=== PATIENT | female | born 1970 | race American Indian/Alaskan Native ===

== ENCOUNTER 2016-12-25 20:53 | Emergency (ER) | payer OTHER ==
[2016-12-25] MEDS ORDERED: NACL 0.9% 1000 ML 1,000 ML IV ONE (21:24)
[2016-12-25] MEDS ORDERED: SUBLIMAZE IV ONE ×2 (21:24→22:31)
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
[2016-12-25 21:48] LABS: Basophils % (Auto) 1.1 % (0.0-1.8); Eosinophils % (Auto) 0.2 % (0.0-4.3); Hematocrit 43.3 % (30.3-42.9); Hemoglobin 14.4 gm/dl (10.1-14.3); Mean Corpuscular HGB Conc 33 % (30-34); Mean Corpuscular Hemoglobin 31 pg (28-32); Mean Corpuscular Volume 94 fl (79-97); Platelet Count 256 K/mm3 (140-440); Red Blood Count 4.59 M/mm3 (3.65-5.03); Red Cell Distribution Width 13.5 % (13.2-15.2); White Blood Count 12.3 K/mm3 (4.5-11.0)
[2016-12-25 22:00] LABS: INR 1.04 (0.87-1.13)
[2016-12-25 22:14] LABS: Alanine Aminotransferase 9 units/L (7-56); Albumin 4.1 g/dL (3.9-5); Albumin/Globulin Ratio 1.4 %; Alkaline Phosphatase 76 units/L (35-129); Anion Gap 17 mmol/L; Bilirubin,Total 0.8 mg/dL (0.1-1.2); Blood Urea Nitrogen 12 mg/dL (7-17); Carbon Dioxide 23 mmol/L (22-30); Chloride 97.4 mmol/L (98-107); Creatine Kinase 83 units/L (30-135); Glucose 292 mg/dL (65-100); Sodium 133 mmol/L (137-145)
[2016-12-25] MEDS ORDERED: NACL ONE (22:18)
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
[2016-12-25] MEDS ORDERED: TORADOL IV ONE (23:51)
[2016-12-25 23:59] VITALS: BP 103/67
--- NOTE | 2016-12-26 09:56 | XRay Report ---
AP CHEST: HISTORY: chest pain AP view of the chest demonstrates a normal mediastinal and cardiac contour with clear lungs and normal bony and soft tissue structures. IMPRESSION: Unremarkable AP chest.
== END 2016-12-26 00:13 | disposition home or self-care (01) ==
LOC: ED 20:53
DX: M54.2 Cervicalgia (principal); E11.9 Type 2 diabetes mellitus without complications; F17.200 Nicotine dependence, unspecified, uncomplicated; F12.90 Cannabis use, unspecified, uncomplicated; Z88.5 Allergy status to narcotic agent; V49.9XXA Car occupant (driver) (passenger) injured in unspecified traffic accident, initial encounter; W22.11XA Striking against or struck by driver side automobile airbag, initial encounter; Y93.89 Activity, other specified; Y99.9 Unspecified external cause status; Y92.410 Unspecified street and highway as the place of occurrence of the external cause
CPT/HCPCS: 36415; 70450; 71010; 71275; 72125; 74177; 80053; 82550; 84484; 84702; 85025; 85610; 93005; 93010; 96361; 96374; 96375; 96376; 99285; J1885; J3010; J7030; Q9967

== ENCOUNTER 2020-04-29 17:37 | Emergency (ER) | payer SELFPAY ==
[2020-04-29 18:03] VITALS: BP 135/91
--- NOTE | 2020-04-29 18:27 | Emergency Department Report ---
ED Upper Extremity Inj HPI - General Chief Complaint: Extremity Injury, Upper Stated Complaint: ELBOW PAIN Time Seen by Provider: 04/29/20 18:12 Source: patient Mode of arrival: Ambulatory Limitations: No Limitations - History of Present Illness Initial Comments: This very pleasant 49-year-old female presents the emergency department chief complaint of lateral right elbow pain over the past 2 days. She states she was cleaning her shower when she hit it against the door. She has been having pain since. She reports she had a previous fracture of her ulna and is concerned she may have reinjured this. Reports the pain is aggravated with supination and extension of her elbow and rates the pain is 6 out of 10. She describes this as as constant dull throbbing pain. She denies any other injuries. Denies any fever, chills, night sweats, headache, dizziness, blurry vision, nausea, vomiting, diarrhea, chest pain, shortness of breath or any other associated symptoms. - Related Data Home Medications Medication Instructions Recorded Confirmed Last Taken Glimepiride [Amaryl] 2 mg PO DAILY 12/25/16 12/25/16 12/25/16 Naproxen [Naproxen TAB] 250 mg PO DAILY 12/25/16 12/25/16 12/25/16 Previous Rx's Medication Instructions Recorded Last Taken Type Ketorolac [Toradol] 10 mg PO Q6H PRN #20 tablet 12/25/16 Unknown Rx Ondansetron [Zofran Odt] 4 mg PO QID PRN #20 tab.rapdis 12/25/16 Unknown Rx methOCARBAMOL [Robaxin TAB] 750 mg PO TID PRN #30 tab 12/25/16 Unknown Rx Naproxen 500 mg PO BID #20 tablet 04/29/20 Unknown Rx methylPREDNISolone [Medrol 4MG 4 mg PO ONCE #1 tab.ds.pk 04/29/20 Unknown Rx DOSEPAK (21 tabs)] Allergies Allergy/AdvReac Type Severity Reaction Status Date / Time morphine Allergy Anaphylaxis Verified 06/03/16 08:59 ED Review of Systems ROS: Stated complaint: ELBOW PAIN Other details as noted in HPI Comment: All other systems reviewed and negative Constitutional: denies: chills, fever Eyes: denies: eye pain, eye discharge, vision change ENT: denies: ear pain, throat pain Respiratory: denies: cough, shortness of breath, wheezing Cardiovascular: denies: chest pain, palpitations Endocrine: no symptoms reported Gastrointestinal: denies: abdominal pain, nausea, diarrhea Genitourinary: denies: urgency, dysuria, discharge Musculoskeletal: as per HPI, arthralgia. denies: back pain, joint swelling Skin: denies: rash, lesions Neurological: denies: headache, weakness, paresthesias Psychiatric: denies: anxiety, depression Hematological/Lymphatic: denies: easy bleeding, easy bruising ED Past Medical Hx - Past Medical History Hx Diabetes: Yes - Surgical History Additional Surgical History: rt fallopian tube removed; 4 breast biolpsies (all benign) - Social History Smoking Status: Current Every Day Smoker - Medications Home Medications: Home Medications Medication Instructions Recorded Confirmed Last Taken Type Glimepiride [Amaryl] 2 mg PO DAILY 12/25/16 12/25/16 12/25/16 History Ketorolac [Toradol] 10 mg PO Q6H PRN #20 tablet 12/25/16 Unknown Rx Naproxen [Naproxen TAB] 250 mg PO DAILY 12/25/16 12/25/16 12/25/16 History Ondansetron [Zofran Odt] 4 mg PO QID PRN #20 tab.rapdis 12/25/16 Unknown Rx methOCARBAMOL [Robaxin TAB] 750 mg PO TID PRN #30 tab 12/25/16 Unknown Rx Naproxen 500 mg PO BID #20 tablet 04/29/20 Unknown Rx methylPREDNISolone [Medrol 4MG 4 mg PO ONCE #1 tab.ds.pk 04/29/20 Unknown Rx DOSEPAK (21 tabs)] ED Physical Exam - General Limitations: No Limitations General appearance: alert, in no apparent distress - Head Head exam: Present: atraumatic, normocephalic - Eye Eye exam: Present: normal appearance, PERRL, EOMI Pupils: Present: normal accommodation - ENT ENT exam: Present: normal exam, normal orophraynx, mucous membranes moist, normal external ear exam - Neck Neck exam: Present: normal inspection, full ROM. Absent: tenderness, meningismus - Respiratory Respiratory exam: Present: normal lung sounds bilaterally. Absent: respiratory distress, wheezes, rales, rhonchi, stridor - Cardiovascular Cardiovascular Exam: Present: regular rate, normal rhythm, normal heart sounds. Absent: systolic murmur, diastolic murmur, rubs, gallop - GI/Abdominal GI/Abdominal exam: Present: soft, normal bowel sounds. Absent: distended, tenderness, guarding, rigid - Extremities Exam Extremities exam: Present: normal inspection, full ROM, tenderness (Tenderness to the right lateral epicondyle with some mild soft tissue swelling. Normal radial pulses. Normal distalization capillary refill. Pain with supination.), normal capillary refill - Back Exam Back exam: Present: normal inspection - Neurological Exam Neurological exam: Present: alert, oriented X3 - Psychiatric Psychiatric exam: Present: normal affect, normal mood - Skin Skin exam: Present: warm, dry, intact, normal color. Absent: rash ED Course Vital Signs 04/29/20 18:01 Temperature 98.0 F Pulse Rate 90 Respiratory 18 Rate Blood Pressure 135/91 O2 Sat by Pulse 97 Oximetry ED Medical Decision Making - Radiology Data Radiology results: report reviewed, image reviewed XRay Report Signed Patient: FLORECITA FINNEGAN MR#: [id number] : 1970 Acct:[id number] Age/Sex: 49 / F ADM Date: 04/29/20 Loc: ED Attending Dr: Ordering Physician: ONEYDA ISAAC Date of Service: 04/29/20 Procedure(s): XR elbow 2V RT Accession Number(s): [id number] cc: ONEYDA ISAAC Fluoro Time In Minutes: RIGHT ELBOW 2 VIEWS INDICATION / CLINICAL INFORMATION: bone spur. COMPARISON: None available. FINDINGS: No significant skeletal abnormality Signer Name: Austen Gillis MD FACR Signed: 04/29/2020 6:37 PM Workstation Name: [id number] - Medical Decision Making X-ray showed no acute fractures or dislocations or acute bony abnormalities per radiology review. Patient will be treated with anti-inflammatories and steroids and orthopedic follow-up for lateral epicondylitis. Patient instructed return t he emerge department any change or worsening symptoms. She verbalized understanding the diagnosis, treatment plan follow-up structures and all of her questions were answered. - Differential Diagnosis Fracture, strain, sprain Critical care attestation.: If time is entered above; I have spent that time in minutes in the direct care of this critically ill patient, excluding procedure time. ED Disposition Clinical Impression: Lateral epicondylitis of elbow Qualifiers: Laterality: right Qualified Code(s): M77.11 - Lateral epicondylitis, right elbow Disposition: TO HOME OR SELFCARE Is pt being admited?: No Condition: Stable Instructions: Tennis Elbow (ED) Prescriptions: methylPREDNISolone [Medrol 4MG DOSEPAK (21 tabs)] 4 mg PO ONCE #1 tab.ds.pk Naproxen 500 mg PO BID #20 tablet Referrals: DI BERNAL MD [Staff Physician] - 3-5 Days Time of Disposition: 18:56
--- NOTE | 2020-04-29 18:42 | XRay Report ---
RIGHT ELBOW 2 VIEWS INDICATION / CLINICAL INFORMATION: bone spur. COMPARISON: None available. FINDINGS: No significant skeletal abnormality Signer Name: Austen Gillis MD FACR Signed: 04/29/2020 6:37 PM Workstation Name: [id number]
== END 2020-04-29 19:17 | disposition home or self-care (01) ==
LOC: ED 17:37
DX: M77.11 Lateral epicondylitis, right elbow (principal); F17.200 Nicotine dependence, unspecified, uncomplicated; E11.9 Type 2 diabetes mellitus without complications; Z79.899 Other long term (current) drug therapy; Z88.6 Allergy status to analgesic agent; Z98.890 Other specified postprocedural states
CPT/HCPCS: 99283

== ENCOUNTER 2021-03-11 20:55 | Emergency (ER) | payer MEDICAID ==
[2021-03-11 21:45] VITALS: BP 128/81
--- NOTE | 2021-03-11 22:04 | Emergency Department Report ---
ED Lower Extremity HPI - General Chief Complaint: Extremity Injury, Lower Stated Complaint: FALL/FT FOOT INJURY Time Seen by Provider: 03/11/21 21:51 Source: patient Mode of arrival: Ambulatory Limitations: Physical Limitation - History of Present Illness Initial Comments: 50-year-old female walking and tripped and rolled her foot causing a pop sensation resulting in swelling and pain and which is significantly worse with palpation and ambulation. Complaint: foot injury -: Sudden, days(s) (2) Injury: Foot: Right Type of Injury: inversion Place: home Severity: moderate, severe Worsens With: weight bearing, movement, palpation Associated Symptoms: snap/pop sensation, swelling, unable to bear weight - Related Data Home Medications Medication Instructions Recorded Confirmed Last Taken Glimepiride [Amaryl] 2 mg PO DAILY 12/25/16 12/25/16 12/25/16 Naproxen [Naproxen TAB] 250 mg PO DAILY 12/25/16 12/25/16 12/25/16 Previous Rx's Medication Instructions Recorded Last Taken Type Ondansetron [Zofran Odt] 4 mg PO QID PRN #20 tab.rapdis 12/25/16 Unknown Rx methOCARBAMOL [Robaxin TAB] 750 mg PO TID PRN #30 tab 12/25/16 Unknown Rx Naproxen 500 mg PO BID #20 tablet 04/29/20 Unknown Rx methylPREDNISolone [Medrol 4MG 4 mg PO ONCE #1 tab.ds.pk 04/29/20 Unknown Rx DOSEPAK (21 tabs)] Ketorolac [Toradol] 10 mg PO Q6H PRN #20 tablet 03/12/21 Unknown Rx Allergies Allergy/AdvReac Type Severity Reaction Status Date / Time morphine Allergy Anaphylaxis Verified 06/03/16 08:59 ED Review of Systems ROS: Stated complaint: FALL/FT FOOT INJURY Other details as noted in HPI Comment: All other systems reviewed and negative ED Past Medical Hx - Past Medical History Previous Medical History?: Yes Hx Diabetes: Yes - Surgical History Past Surgical History?: Yes Additional Surgical History: rt fallopian tube removed; 4 breast biolpsies (all benign) - Social History Smoking Status: Current Every Day Smoker - Medications Home Medications: Home Medications Medication Instructions Recorded Confirmed Last Taken Type Glimepiride [Amaryl] 2 mg PO DAILY 12/25/16 12/25/16 12/25/16 History Naproxen [Naproxen TAB] 250 mg PO DAILY 12/25/16 12/25/16 12/25/16 History Ondansetron [Zofran Odt] 4 mg PO QID PRN #20 tab.rapdis 12/25/16 Unknown Rx methOCARBAMOL [Robaxin TAB] 750 mg PO TID PRN #30 tab 12/25/16 Unknown Rx Naproxen 500 mg PO BID #20 tablet 04/29/20 Unknown Rx methylPREDNISolone [Medrol 4MG 4 mg PO ONCE #1 tab.ds.pk 04/29/20 Unknown Rx DOSEPAK (21 tabs)] Ketorolac [Toradol] 10 mg PO Q6H PRN #20 tablet 03/12/21 Unknown Rx ED Physical Exam - General Limitations: Physical Limitation General appearance: alert, in no apparent distress - Head Head exam: Present: atraumatic, normocephalic - Eye Eye exam: Present: normal appearance - ENT ENT exam: Present: mucous membranes moist - Neck Neck exam: Present: normal inspection - Respiratory Respiratory exam: Present: normal lung sounds bilaterally. Absent: respiratory distress - Cardiovascular Cardiovascular Exam: Present: regular rate, normal rhythm. Absent: systolic murmur, diastolic murmur, rubs, gallop - GI/Abdominal GI/Abdominal exam: Present: soft, normal bowel sounds - Extremities Exam Extremities exam: Present: normal inspection, tenderness, normal capillary refill. Absent: joint swelling, calf tenderness - Expanded Lower Extremity Exam Right Lower Leg exam: Present: normal inspection Ankle exam: Present: normal inspection Foot/Toe exam: Present: tenderness, swelling Neuro vascular tendon exam: Present: no vascular compromise 1 - Swelling tenderness region with palpation - Back Exam Back exam: Present: normal inspection - Neurological Exam Neurological exam: Present: alert, oriented X3 - Psychiatric Psychiatric exam: Present: normal affect, normal mood - Skin Skin exam: Present: warm, dry, intact, normal color. Absent: rash ED Course Vital Signs 03/11/21 21:43 Pulse Rate 79 Respiratory 16 Rate Blood Pressure 128/81 [Right] O2 Sat by Pulse 97 Oximetry ED Lower Extremity MDM - Radiology Data Radiology results: report reviewed [facility] [address] [place] [address] XRay Report Signed Patient: FLORECITA FINNEGAN MR#: [id number] : 1970 Acct:[id number] Age/Sex: 50 / F ADM Date: 03/11/21 Loc: ED Attending Dr: Ordering Physician: VASU GROSS Date of Service: 03/11/21 Procedure(s): XR foot 3+V RT Accession Number(s): [id number] cc: VASU GROSS Fluoro Time In Minutes: EXAMINATION: Right foot radiograph, 3 views, 03/11/2021 CLINICAL INFORMATION: Trauma. Fall down stairs. COMPARISON: None. FINDINGS: There is no evidence of acute fracture or dislocation of the right foot. No significant bony degenerative changes are noted. No focal soft tissue swelling is identified. Signer Name: Jill Reyes MD Signed: 03/11/2021 10:55 PM Workstation Name: [id number] Transcribed By: EB Dictated By: Jill Reyes MD Electronically Authenticated By: Jill Reyes MD Signed Date/Time: 03/11/212254 DD/ 52 TD/TT: P Critical care attestation.: If time is entered above; I have spent that time in minutes in the direct care of this critically ill patient, excluding procedure time. ED Disposition Clinical Impression: Right foot strain Disposition: DC-01 TO HOME OR SELFCARE Is pt being admited?: No Does the pt Need Aspirin: No Condition: Stable Instructions: How to Use Cold Therapy, [id number], Elastic Bandage and RICE Therapy, How to Use Cold Therapy, Crutch Use, Adult Prescriptions: Ketorolac [Toradol] 10 mg PO Q6H PRN #20 tablet PRN Reason: Pain Referrals: DI BERNAL MD [Staff Physician] - 3-5 Days
--- NOTE | 2021-03-11 22:59 | XRay Report ---
EXAMINATION: Right foot radiograph, 3 views, 03/11/2021 CLINICAL INFORMATION: Trauma. Fall down stairs. COMPARISON: None. FINDINGS: There is no evidence of acute fracture or dislocation of the right foot. No significant bon y degenerative changes are noted. No focal soft tissue swelling is identified. Signer Name: Jill Reyes MD Signed: 03/11/2021 10:55 PM Workstation Name: [id number]
== END 2021-03-12 01:00 | disposition home or self-care (01) ==
LOC: ED 20:55
DX: S96.911A Strain of unspecified muscle and tendon at ankle and foot level, right foot, initial encounter (principal); E11.9 Type 2 diabetes mellitus without complications; F17.200 Nicotine dependence, unspecified, uncomplicated; Z98.890 Other specified postprocedural states; Z79.899 Other long term (current) drug therapy; Z88.8 Allergy status to other drugs, medicaments and biological substances; W01.0XXA Fall on same level from slipping, tripping and stumbling without subsequent striking against object, initial encounter; Y93.89 Activity, other specified; Y92.89 Other specified places as the place of occurrence of the external cause; Y99.8 Other external cause status